=== PATIENT | male | born 1935 | race Caucasian/White ===

== ENCOUNTER 2019-07-03 12:17 | Inpatient (IN) ==
[2019-07-03] MEDS ORDERED: APRESOLINE PO ONE (13:52)
--- NOTE | 2019-07-03 14:10 | Diag Imaging Result Doc PS360 ---
EXAM: CHEST-PORTABLE 07/03/2019 HISTORY: syncope TECHNIQUE: Erect AP portable at 1359 COMMENT: The inspiration is suboptimal. Considering the degree of inspiration there has been no significant change since 11/15/2018. IMPRESSION: Poor inspiration. No acute disease. Electronically signed by Ed Miles 07/03/2019 2:08 PM
[2019-07-03 14:13] LABS: BASO# 0.02 X1000 (0.0-0.2); BASO% 0.2 % (0.0-0.8); EOS# 0.06 X1000 (0.0-0.7); EOS% 0.5 % (0.0-10.0); HEMATOCRIT 40.5 % (42.0-52.0); HEMOGLOBIN 13.4 g/dL (14.0-18.0); IMM GRAN# 0.02 X1000 (0.0-0.04); IMM GRAN% 0.2 % (0.0-0.5); LYMPH# 1.04 X1000 (1.2-3.4); LYMPH% 9.4 % (20.5-51.1); MCH 29.9 PG (27-31); MCHC 33.1 g/dL (33-37); MCV 90.4 FL (81-99); MONO# 0.69 X1000 (0.11-0.59); MONO% 6.2 % (1.7-9.3); MPV 10.5 FL (7.4-10.4); NEUT# 9.28 X1000 (1.4-6.5); NEUT% 83.5 % (42.2-75.2); PLT 188 X1000 (130-400); RBC 4.48 XMIL (4.7-6.1); RDW 12.2 % (11.5-14.5); WBC 11.11 X1000 (4.8-10.8)
--- NOTE | 2019-07-03 14:24 | PROVIDER DOCUMENTATION ---
HPI-Syncope/Dizziness - General Chief Complaint: Syncope Stated Complaint: FALL Time Seen by Provider: 07/03/19 13:13 Source: patient, family () Allergies/Adverse Reactions: Patient Allergies Allergy/AdvReac Type Severity Reaction Status Date / Time No Known Allergies Allergy Verified 07/03/19 13:09 Home Medications: Home Medication List Medication Instructions Recorded Confirmed Last Taken Type Cholecalciferol (Vitamin D3) 5,000 unit PO DAILY 11/15/18 07/03/19 07/03/19 History [Vitamin D3] Cyanocobalamin/Cobamamide [Vitamin 1 ea SUBLINGUAL DAILY 11/15/18 07/03/19 07/03/19 History B-12 5,000 Mcg Tab Sl] Dutasteride [Avodart] 0.5 mg PO DAILY 11/15/18 07/03/19 07/02/19 History Irbesartan 300 mg PO DAILY 11/15/18 07/03/19 07/02/19 History PRAVAstatin [Pravachol] 80 mg PO QHS 11/15/18 07/03/19 07/02/19 History Tamsulosin [Flomax] 0.4 mg PO BID 11/15/18 07/03/19 07/03/19 History Zolpidem [Ambien] 5 mg PO QHS 11/15/18 07/03/19 07/02/19 History Aspirin 1 tab PO DAILY 07/03/19 07/03/19 07/02/19 History - History of Present Illness-Syncope/Dizzy Nature of Presenting Problem: 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 He states he was altered and only came around to see people who had come to help him. No eye witness account and length of syncopal episode or any seizure episodes could not be accounted for if any. Onset/Duration: reports: abrupt, 4-6 hours ago Timing: reports: resolved prior to arrival Position/Activity at time of episode: reports: sitting Symptoms prior to episode: reports: none Context: reports: lost consciousness Loss of Consciousness: prolonged (minutes) Location of injury. (If syncope resulted in an injury.): reports: none Current Symptoms: reports: none/feels normal Recently Seen Here or By Another Healthcare Provider: No Review of Systems - Adult - REVIEW OF SYSTEMS - ADULT Constitutional: reports: no symptoms reported Eyes: reports: no symptoms reported Ears, Nose, Mouth & Throat: reports: no symptoms reported Cardiovascular: reports: no symptoms reported Respiratory: reports: no symptoms reported Gastrointestinal: reports: no symptoms reported Genitourinary: reports: no symptoms reported Musculoskeletal: reports: no symptoms reported Integumentary: reports: no symptoms reported Neurological: reports: see HPI Psychiatric: reports: no symptoms reported Endocrine: reports: no symptoms reported Hematologic/Lymphatic: reports: no symptoms reported Allergic/Immunologic: reports: no symptoms reported Past History - Adult - PAST MEDICAL HISTORY-ADULT Review of Records: reports: Nursing Assessment Review, Medications Reviewed, Social history reviewed & non-contributory. Cardiovascular: reports: HTN Respiratory: reports: denies history Gastrointestinal: reports: denies history Genitourinary: reports: other (BPH) Neurological: reports: CVA Endocrine/Immune: reports: denies history - FAMILY HISTORY Family History: reviewed, not pertinent - SOCIAL HISTORY Smoking: denies Substance Use: none/never Alcohol Use Frequency: never Living Situation: family Physical Exam-General - PHYSICAL EXAM-ADULT Initial Vital Signs Reviewed: Yes - CONSTITUTIONAL General Appearance: appears well, alert, no apparent distress - EYES Eyes: PERRL/EOMI, pink conjunctivae - HEAD, EARS, NOSE, MOUTH & THROAT HENMT: normocephalic/atraumatic (except for a linear abrasion near the left ear) - NECK Neck: non-tender, full range of motion, supple - RESPIRATORY Respiratory: chest non-tender, lungs clear, normal breath sounds - CARDIOVASCULAR Cardiovascular: normal peripheral pulses, regular rate, rhythm - GASTROINTESTINAL (ABDOMEN) Abdominal Exam: normal bowel sounds, non tender, soft - MUSCULOSKELETAL Back Exam: normal inspection Extremity: normal range of motion, non-tender, normal gait (for age) - SKIN Integumentary: normal color (a linear abrasion noted near the left ear. 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 - PSYCHIATRIC Psych/Mental Status: oriented x 3 Progress - PLAN OF CARE/RESULTS Progress/Plan/Lab Results: Vital Signs - 8 hr 07/03/19 13:01 07/03/19 13:02 07/03/19 13:15 Pulse Rate 62 60 60 Pulse Rate [Sitting] Pulse Rate [Standing] Pulse Rate [Supine] Respiratory Rate 20 17 15 Blood Pressure 172/75 Blood Pressure [Sitting] Blood Pressure [Standing] Blood Pressure [Supine] O2 Sat by Pulse Oximetry 96 96 96 07/03/19 13:41 07/03/19 14:00 07/03/19 14:01 Pulse Rate 65 64 63 Pulse Rate [Sitting] Pulse Rate [Standing] Pulse Rate [Supine] Respiratory Rate 17 13 25 H Blood Pressure 188/89 180/80 Blood Pressure [Sitting] Blood Pressure [Standing] Blood Pressure [Supine] O2 Sat by Pulse Oximetry 95 95 07/03/19 14:15 07/03/19 14:30 07/03/19 14:31 Pulse Rate 64 64 65 Pulse Rate [Sitting] Pulse Rate [Standing] Pulse Rate [Supine] Respiratory Rate 16 19 14 Blood Pressure 179/85 Blood Pressure [Sitting] Blood Pressure [Standing] Blood Pressure [Supine] O2 Sat by Pulse Oximetry 97 95 07/03/19 14:56 07/03/19 15:00 07/03/19 15:15 Pulse Rate 65 62 64 Pulse Rate [Sitting] Pulse Rate [Standing] Pulse Rate [Supine] Respiratory Rate 21 20 21 Blood Pressure 186/86 Blood Pressure [Sitting] Blood Pressure [Standing] Blood Pressure [Supine] O2 Sat by Pulse Oximetry 97 95 96 07/03/19 15:24 07/03/19 15:25 07/03/19 15:27 Pulse Rate 62 60 66 Pulse Rate [Sitting] Pulse Rate [Standing] Pulse Rate [Supine] Respiratory Rate 16 15 Blood Pressure 173/80 173/81 171/87 Blood Pressure [Sitting] Blood Pressure [Standing] Blood Pressure [Supine] O2 Sat by Pulse Oximetry 96 95 96 07/03/19 15:28 07/03/19 15:30 07/03/19 15:31 Pulse Rate 72 61 Pulse Rate [Sitting] 67 Pulse Rate [Standing] 74 Pulse Rate [Supine] 63 Respiratory Rate 19 20 Blood Pressure 165/80 183/85 Blood Pressure [Sitting] 171/82 Blood Pressure [Standing] 165/80 Blood Pressure [Supine] 173/81 O2 Sat by Pulse Oximetry 94 L 94 L 07/03/19 15:45 07/03/19 16:00 07/03/19 16:01 Pulse Rate 73 60 61 Pulse Rate [Sitting] Pulse Rate [Standing] Pulse Rate [Supine] Respiratory Rate 18 16 13 Blood Pressure 178/82 Blood Pressure [Sitting] Blood Pressure [Standing] Blood Pressure [Supine] O2 Sat by Pulse Oximetry 96 95 07/03/19 16:02 07/03/19 16:14 07/03/19 16:15 Pulse Rate 59 L 60 63 Pulse Rate [Sitting] Pulse Rate [Standing] Pulse Rate [Supine] Respiratory Rate 16 15 18 Blood Pressure 187/79 Blood Pressure [Sitting] Blood Pressure [Standing] Blood Pressure [Supine] O2 Sat by Pulse Oximetry 95 95 96 07/03/19 16:18 07/03/19 17:00 07/03/19 17:32 Pulse Rate 62 71 77 Pulse Rate [Sitting] Pulse Rate [Standing] Pulse Rate [Supine] Respiratory Rate 16 19 23 Blood Pressure 173/79 160/71 Blood Pressure [Sitting] Blood Pressure [Standing] Blood Pressure [Supine] O2 Sat by Pulse Oximetry 94 L 96 95 07/03/19 18:34 07/03/19 18:45 07/03/19 19:00 Pulse Rate 81 75 75 Pulse Rate [Sitting] Pulse Rate [Standing] Pulse Rate [Supine] Respiratory Rate 25 H 16 28 H Blood Pressure 148/84 Blood Pressure [Sitting] Blood Pressure [Standing] Blood Pressure [Supine] O2 Sat by Pulse Oximetry 07/03/19 19:01 Pulse Rate 76 Pulse Rate [Sitting] Pulse Rate [Standing] Pulse Rate [Supine] Respiratory Rate 16 Blood Pressure 132/66 Blood Pressure [Sitting] Blood Pressure [Standing] Blood Pressure [Supine] O2 Sat by Pulse Oximetry Laboratory Results - last 24 hr 07/03/19 07/03/19 07/03/19 13:42 13:56 13:56 WBC 11.11 H RBC 4.48 L Hgb 13.4 L Hct 40.5 L MCV 90.4 MCH 29.9 MCHC 33.1 RDW Std Deviation 12.2 Plt Count 188 MPV 10.5 H Immature Gran % (Auto) 0.2 Neut % (Auto) 83.5 H Lymph % (Auto) 9.4 L [place] % (Auto) 6.2 Eos % (Auto) 0.5 Baso % (Auto) 0.2 Immature Gran # (Auto) 0.02 Neut # (Auto) 9.28 H Lymph # (Auto) 1.04 L [place] # (Auto) 0.69 H Eos # (Auto) 0.06 Baso # (Auto) 0.02 PT INR PTT (Actin FS) Sodium 139 Potassium 4.8 Chloride 101 Carbon Dioxide 24 L Anion Gap 14 BUN 14 Creatinine 1.1 Estimated GFR/1.73 m2 > 60 BUN/Creatinine Ratio 13 Glucose 94 POC Glucose 74 Calculated Osmolality 278 Calcium 9.3 Total Bilirubin 0.41 AST 20 ALT 11 Alkaline Phosphatase 79 Troponin T Total Protein 6.5 Albumin 4.2 Globulin 2.3 Albumin/Globulin Ratio 1.8 Urine Source Urine Color Urine Turbidity Urine pH Ur Specific [place] Urine Protein Ur Glucose (Stick) Ur Ketones (Stick) Urine Blood Urine Nitrite Urine Bilirubin Urobilinogen Dipstick Urine Leukocytes Urine WBC (Auto) Urine RBC (Auto) U Epithel Cells (Auto) Urine Bacteria (Auto) Urine Opiates Screen Ur Oxycodone Screen Ur Methadone, Qual Ur Barbiturates Screen Ur Phencyclidine Scrn Ur Amphetamines Screen U Benzodiazepines Scrn Urine Cocaine Screen U Cannabinoids Screen 07/03/19 07/03/19 07/03/19 13:56 13:56 14:56 WBC RBC Hgb Hct MCV MCH MCHC RDW Std Deviation Plt Count MPV Immature Gran % (Auto) Neut % (Auto) Lymph % (Auto) [place] % (Auto) Eos % (Auto) Baso % (Auto) Immature Gran # (Auto) Neut # (Auto) Lymph # (Auto) [place] # (Auto) Eos # (Auto) Baso # (Auto) PT 13.1 INR 0.98 PTT (Actin FS) 28.9 Sodium Potassium Chloride Carbon Dioxide Anion Gap BUN Creatinine Estimated GFR/1.73 m2 BUN/Creatinine Ratio Glucose POC Glucose Calculated Osmolality Calcium Total Bilirubin AST ALT Alkaline Phosphatase Troponin T < 0.010 Total Protein Albumin Globulin Albumin/Globulin Ratio Urine Source CLEAN CATCH Urine Color YELLOW Urine Turbidity CLEAR Urine pH 6.5 Ur Specific [place] 1.013 Urine Protein NEGATIVE Ur Glucose (Stick) NEGATIVE Ur Ketones (Stick) NEGATIVE Urine Blood NEGATIVE Urine Nitrite NEGATIVE Urine Bilirubin NEGATIVE Urobilinogen Dipstick NORMAL Urine Leukocytes NEGATIVE Urine WBC (Auto) <10 Urine RBC (Auto) <10 U Epithel Cells (Auto) <10 Urine Bacteria (Auto) NEGATIVE Urine Opiates Screen Ur Oxycodone Screen Ur Methadone, Qual Ur Barbiturates Screen Ur Phencyclidine Scrn Ur Amphetamines Screen U Benzodiazepines Scrn Urine Cocaine Screen U Cannabinoids Screen 07/03/19 07/03/19 14:56 15:48 WBC RBC Hgb Hct MCV MCH MCHC RDW Std Deviation Plt Count MPV Immature Gran % (Auto) Neut % (Auto) Lymph % (Auto) [place] % (Auto) Eos % (Auto) Baso % (Auto) Immature Gran # (Auto) Neut # (Auto) Lymph # (Auto) [place] # (Auto) Eos # (Auto) Baso # (Auto) PT INR PTT (Actin FS) Sodium Potassium Chloride Carbon Dioxide Anion Gap BUN Creatinine Estimated GFR/1.73 m2 BUN/Creatinine Ratio Glucose POC Glucose 92 Calculated Osmolality Calcium Total Bilirubin AST ALT Alkaline Phosphatase Troponin T Total Protein Albumin Globulin Albumin/Globulin Ratio Urine Source Urine Color Urine Turbidity Urine pH Ur Specific [place] Urine Protein Ur Glucose (Stick) Ur Ketones (Stick) Urine Blood Urine Nitrite Urine Bilirubin Urobilinogen Dipstick Urine Leukocytes Urine WBC (Auto) Urine RBC (Auto) U Epithel Cells (Auto) Urine Bacteria (Auto) Urine Opiates Screen NONE DETECTED Ur Oxycodone Screen NONE DETECTED Ur Methadone, Qual NONE DETECTED Ur Barbiturates Screen NONE DETECTED Ur Phencyclidine Scrn NONE DETECTED Ur Amphetamines Screen NONE DETECTED U Benzodiazepines Scrn NONE DETECTED Urine Cocaine Screen NONE DETECTED U Cannabinoids Screen NONE DETECTED Orders Category Date Time Status Cardiac Monitoring DIRECTED Care 07/03/19 13:49 Active ED: Orthostatic Vital Signs (E DIRECTED Care 07/03/19 15:12 Active Finger Stick Blood Sugar (ED) DIRECTED Care 07/03/19 13:49 Active Misc. NRSG Communication Order DIRECTED Care 07/03/19 13:49 Active Saline Loc NOW Care 07/03/19 13:49 Active VS [Vital Signs Order] Q 4-HR ASSESS Care 07/03/19 19:34 Active Regular Diet Diet 07/03/19 16:54 Active CHEST-PORTABLE [RAD] Stat Exams 07/03/19 13:[address] HEAD W/O CONTRAST [CT] Stat Exams 07/03/19 13:31 Completed CBC WITH ELECTRONIC DIFF [HEME] Stat Lab 07/03/19 13:56 Completed COMPREHENSIVE METABOLIC PANEL [CHEM] Stat Lab 07/03/19 13:56 Completed PROTIME WITH INR [COAG] Stat Lab 07/03/19 13:56 Completed PTT [COAG] Stat Lab 07/03/19 13:56 Completed TROPONIN T Stat Lab 07/03/19 13:56 Completed URINALYSIS W/POSS RFLX CULT [URINALYSIS] Stat Lab 07/03/19 14:56 Completed URINE DRUG SCREEN Stat Lab 07/03/19 14:56 Completed Diph,Pertuss(Acell),Tet Vac/Pf [Boostrix Vaccine] Med 07/03/19 17:15 Discontinued 0.5 ml IM .ONCE ONE Hydralazine [Apresoline] Med 07/03/19 15:58 Discontinued 10 mg IV NOW ONE Hydralazine [Apresoline] Med 07/03/19 13:52 Discontinued 10 mg PO NOW ONE EKG [EKG] Stat Ther 07/03/19 13:49 Draft Transfer/Admit Order [TRANSFER] Routine Transfer 07/03/19 19:28 Ordered Result Diagrams: 07/03/19 13:56 07/03/19 13:56 - REASSESSMENT Reassessment #1 Time Reassessed: 16:01 Status: other (Pt is stable, bp did not go down much with hydralazine 10mg po. Will give hydralazine 10mg IV and pt will be admitted for syncope work up. 16:03: Paged Hospitalist, awaiting response.) Reassessment #2 Time Reassessed: 17:13 Status: unchanged (Patient stable. Paged hospitalist software solutions architect 3x. Awaiting response) - XRAY 1 XRAY Study: Chest ( EXAM: CHEST-PORTABLE 07/03/2019 HISTORY: syncope TECHNIQUE: Erect AP portable at 1359 COMMENT: The inspiration is suboptimal. Considering the degree of inspiration there has been no significant change since 11/15/2018. IMPRESSION: Poor inspiration. No acute disease. Electronically signed by Ed Miles 07/03/2019 2:08 PM) - CT/MRI 1 CT Study: Head (Signed EXAM: CT HEAD W/O CONTRAST 07/03/2019 HISTORY: head injury TECHNIQUE: This exam was performed using automated exposure control, adjustment of mA or kV according to patient size, and/or use of iterative reconstruction technique. COMMENT: There are no previous studies available for comparison. There is encephalomalacia present in the posterior left parietal lobe and the frontoparietal cortex on the left medially. There is a CSF density collection present in the left posterior fossa which is asymmetrical in appearance and may be represent an arachnoid cyst. There is no evidence of bleed or abnormal extra-axial fluid collection otherwise. The visualized paranasal sinuses are clear and the calvarium is intact. IMPRESSION: Chronic ischemic changes in the left hemisphere. 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 Eventually spke with Dr Pa, accepts admission and will see patient later.) Departure - Departure Date of Disposition Decision: 07/03/19 Time of Disposition Decision: 18:05 DIAGNOSIS: Syncope Qualifiers: Syncope type: unspecified Qualified Code(s): R55 - Syncope and collapse HTN (hypertension) Qualifiers: Hypertension type: unspecified Qualified Code(s): I10 - Essential (primary) hypertension Disposition: ADMITTED INPATIENT 09 Certified Medical Emergency: Emergent Condition: Fair - Critical Care Note This patient required my direct & personal management of CC.: No Attestation - Physician/ VERN Attestation Patient care was provided by Advanced Practice Provider:: No The physician spent face to face time with patient:: Yes Advanced Practice Provider documentation review:: Supervising physician onsite and consulted in the evaluation and care of this patient. The physician did have a face to face encounter with the patient.
[2019-07-03 14:45] LABS: AGAP 14; ALB/GLOB RATIO 1.8; ALBUMIN 4.2 g/dL (3.5-5.0); ALKALINE PHOSPHATASE 79 U/L (32-122); BUN 14 mg/dL (8-22); CALCIUM 9.3 mg/dL (8.8-10.2); CHLORIDE 101 mmol/L (98-107); COSMO 278; CREATININE 1.1 mg/dL (0.7-1.2); ESTIMATED GFR > 60; GLUCOSE 94 mg/dL (70-104); GOT 20 U/L (10-34); GPT 11 U/L (10-44); INR 0.98; POTASSIUM 4.8 mmol/L (3.5-5.1); PROTIME 13.1 Seconds (11.0-16.0); SODIUM 139 mmol/L (136-145); TCO2 24 mmol/L (25-35); TOTAL BILIRUBIN 0.41 mg/dL (0.20-1.00); TOTAL PROTEIN 6.5 g/dL (6.3-8.3)
[2019-07-03 14:46] LABS: PTT 28.9 Seconds (22.3-41.8)
--- NOTE | 2019-07-03 14:49 | Diag Imaging Result Doc PS360 ---
EXAM: CT HEAD W/O CONTRAST 07/03/2019 HISTORY: head injury TECHNIQUE: This exam was performed using automated exposure control, adjustment of mA or kV according to patient size, and/or use of iterative reconstruction technique. COMMENT: There are no previous studies available for comparison. There is encephalomalacia present in the posterior left parietal lobe and the frontoparietal cortex on the left medially. There is a CSF density collection present in the left posterior fossa which is asymmetrical in appearance and may be represent an arachnoid cyst. There is no evidence of bleed or abnormal extra-axial fluid collection otherwise. The visualized paranasal sinuses are clear and the calvarium is intact. IMPRESSION: Chronic ischemic changes in the left hemisphere. Arachnoid cyst in the left posterior fossa. Electronically signed by Ed Miles 07/03/2019 2:47 PM
--- NOTE | 2019-07-03 14:50 | EKG Report ---
Test Performed on : 07/03/2019 12:47:49 PM Test Reason : Stroke like symptoms Blood Pressure : / mmHG Vent. Rate : 058 BPM Atrial Rate : 058 BPM P-R Int : 178 ms QRS Dur : 126 ms QT Int : 416 ms P-R-T Axes : 044 -14 018 degrees QTc Int : 408 ms Sinus bradycardia. Right bundle branch block Abnormal ECG When compared with ECG of 15-NOV-2018 12:45, QRS duration has decreased Unconfirmed Result
[2019-07-03 15:14] LABS: URINE SOURCE CLEAN CATCH
[2019-07-03 15:22] LABS: BILIRUBIN URINE NEGATIVE (NEGATIVE); BLOOD URINE NEGATIVE (NEGATIVE); COLOR YELLOW; GLUCOSE URINE NEGATIVE (NEGATIVE); KETONE URINE NEGATIVE (NEGATIVE); LEUKOCYTES URINE NEGATIVE (NEGATIVE); NITRITE URINE NEGATIVE (NEGATIVE); PH URINE 6.5; PROTEIN URINE NEGATIVE (NEGATIVE); SP GRAVITY URINE 1.013; TURBIDITY URINE CLEAR (CLEAR); UROBILINOGEN URINE NORMAL (NORMAL)
[2019-07-03 15:25] LABS: UR EPITHELIAL CELLS <10 /HPF (<10); URINE BACTERIA NEGATIVE /HPF; URINE RBC <10 /HPF (<10); URINE WBC <10 /HPF (<10)
[2019-07-03 15:34] LABS: UR AMPHETAMINES QUAL NONE DETECTED (NONE DETECT); UR BARBITUATES QUAL NONE DETECTED (NONE DETECT); UR BENZODIAZEPIN QUAL NONE DETECTED (NONE DETECT); UR CANNABINOIDS QUAL NONE DETECTED (NONE DETECT); UR COCAINE QUAL NONE DETECTED (NONE DETECT); UR METHADONE QUAL NONE DETECTED (NONE DETECT); UR OPIATES QUAL NONE DETECTED (NONE DETECT); UR OXYCODONE QUAL NONE DETECTED (NONE DETECT); UR PCP QUAL NONE DETECTED (NONE DETECT)
[2019-07-03] MEDS ORDERED: APRESOLINE IV ONE (15:58)
[2019-07-03] MEDS ORDERED: BOOSTRIX VACCINE IM ONE (17:15)
--- NOTE | 2019-07-03 21:09 | HISTORY AND PHYSICAL ---
SUBJECTIVE: The patient passed out. HISTORY OF PRESENT ILLNESS: The patient is an 84-year-old white male who was working out at the gym and had a syncopal episode. He said he had just worked out and was adjusting some arm supports on a machine and he hit the floor. He said he did not feel dizzy. Does not know what happened. He says he was only out for a few seconds. There were other people gym who helped him up and then a special forces officer who was actually working out came to check on him as well. He does not remember any chest pain, heart palpitations, headaches and he said he felt fairly normal when he woke up. Apparently, there was no reportable shaking behavior. Past history is positive for a stroke in October of this year, hypertension, hyperlipidemia and BPH. He had a workup with an echocardiogram done transesophageal there was essentially normal in November. He had a carotid flow studies in October which showed minimal disease. MRI scan showed a left occipital area of ischemic stroke. He had a myocardial perfusion scan in December of this year that was essentially normal. PAST MEDICAL HISTORY: ALLERGIES: He has no known allergies. PAST SURGICAL HISTORY: He has had no previous surgeries. SOCIAL HISTORY: Does not use alcohol or tobacco to any extent. He does have 2 children. He is retired. One daughter of lung cancer. She was a smoker. REVIEW OF SYSTEMS: Neurological: Denies headaches, seizures, visual problems. Does have chronic hearing problems and wears hearing aids. Pulmonary: Denies cough, wheezing, dyspnea. Cardiovascular: Denies chest pain, heart palpitations, PND, orthopnea. GI: Denies hematochezia, hematemesis, melena, constipation, diarrhea. No nausea or vomiting. : Denies any difficulty with urination as long as he takes Avodart and his Flomax. Endocrine: He has had no diabetes, thyroid problems or pituitary problems. PHYSICAL EXAMINATION: VITAL SIGNS: When he came in his blood pressure was in the 150s to 170s initially went up to 188. General his blood pressures have been good recently. He was given initially hydralazine 10 mg p.o. with no affect and then was given 10 mg IV and did get a good response to his blood pressure with that. HEENT: He is normocephalic. PERRLA clear. Fundi benign. TMs within normal limits. He does wear hearing aids bilaterally. NECK: Supple without thyromegaly, lymphadenopathy, or carotid bruits. LUNGS: Are clear to auscultation and percussion without rhonchi, rales, or wheezes. HEART: Regular rate and rhythm without murmurs, gallops, friction rubs. ABDOMEN: Soft. Active bowel sounds no organomegaly or tenderness. NEUROLOGICAL EXAM: Cranial nerves 2-12 intact grossly. Sensory and motor intact. Reflexes 1+ in all. SKIN: He has no rashes. LYMPH NODES: Lymph nodes are nonpalpable in the cervical and supraclavicular areas. RECTAL: Deferred. GENITOURINARY: External genitalia exam is deferred. COURSE IN THE EMERGENCY ROOM: The patient does state that he may have skipped supper last night. When he first came to the emergency room his blood sugar was in the 70s. He was given something to eat. He did not feel particularly nauseated or did not feel tremulous like low blood sugars spell, but that is a consideration. ASSESSMENT: 1. Syncope. 2. Hypertension. 3. Benign prostatic hyperplasia. 4. History of cerebrovascular accident. PLAN: We will admit, do workup for syncope. We will consult Neurology and Cardiology. We will do kimberley-profiles though he has denied any chest pain. He has already had recent carotid studies and echo. I am not sure we need to repeat those, but we will find out what is recommended by Cardiology. cc: Cornelius Pa Jr, MD
[2019-07-03] MEDS: PRAVACHOL PO SCH (22:10)
[2019-07-03] MEDS: AMBIEN PO SCH (22:11)
[2019-07-03] MEDS: FLOMAX PO SCH (22:11)
[2019-07-04 04:13] LABS: BASO# 0.02 X1000 (0.0-0.2); BASO% 0.2 % (0.0-0.8); EOS# 0.22 X1000 (0.0-0.7); EOS% 2.4 % (0.0-10.0); HEMATOCRIT 38.4 % (42.0-52.0); HEMOGLOBIN 12.8 g/dL (14.0-18.0); LYMPH# 1.27 X1000 (1.2-3.4); LYMPH% 13.9 % (20.5-51.1); MCHC 33.3 g/dL (33-37); MCV 90.1 FL (81-99); MONO# 0.81 X1000 (0.11-0.59); MONO% 8.9 % (1.7-9.3); MPV 10.2 FL (7.4-10.4); NEUT# 6.83 X1000 (1.4-6.5); NEUT% 74.6 % (42.2-75.2); PLT 197 X1000 (130-400); RBC 4.26 XMIL (4.7-6.1); WBC 9.15 X1000 (4.8-10.8)
[2019-07-04 04:40] LABS: AGAP 12; BUN 15 mg/dL (8-22); CALCIUM 9.1 mg/dL (8.8-10.2); CHLORIDE 104 mmol/L (98-107); COSMO 280; CREATININE 0.9 mg/dL (0.7-1.2); ESTIMATED GFR > 60; GLUCOSE 97 mg/dL (70-104); POTASSIUM 4.1 mmol/L (3.5-5.1); SODIUM 140 mmol/L (136-145); TCO2 24 mmol/L (25-35)
--- NOTE | 2019-07-04 10:20 | EKG Report ---
Test Performed on : 07/04/2019 10:12:19 AM Test Reason : syncope Blood Pressure : / mmHG Vent. Rate : 059 BPM Atrial Rate : 059 BPM P-R Int : 196 ms QRS Dur : 136 ms QT Int : 440 ms P-R-T Axes : 053 -19 014 degrees QTc Int : 435 ms Sinus bradycardia. Right bundle branch block Abnormal ECG When compared with ECG of 03-JUL-2019 12:47, (Unconfirmed) No significant change was found Confirmed by Herb SANDOVAL, P.J.M ([id number]) on 07/05/2019 7:56:18 PM
[2019-07-04] MEDS: VITAMIN D PO SCH (10:24)
[2019-07-04] MEDS: AVAPRO PO SCH (10:24)
[2019-07-04] MEDS: ASPIRIN PO SCH (10:24)
[2019-07-04] MEDS: FLOMAX PO SCH ×2 (10:24→21:12)
--- NOTE | 2019-07-04 11:27 | PROGRESS NOTE ---
DATE: 07/04/2019 SUBJECTIVE: The patient says he feels fine. He has had no more syncopal episodes. OBJECTIVE: Vital signs: Blood pressure is 165/69, respirations 19, pulse 60, temperature 98.2 degrees Fahrenheit. HEENT: Normocephalic, EOMs intact. PERRLA. Throat clear. Lungs: Clear to auscultation and percussion without rhonchi, rales, or wheezes. Heart: Regular rate and rhythm without murmurs, gallops or friction rubs. Abdomen: Soft. Active bowel sounds. No organomegaly or tenderness. Neurologic: Intact grossly at this time. ASSESSMENT: 1. Syncope. 2. Hypertension. PLAN: Continue workup for syncope. Have consulted Neurology and Cardiology. The patient has had a stroke within the last 8 months and had a workup including cardiac workup at that time. cc: Cornelius Pa Jr, MD
[2019-07-04] MEDS: AVODART PO SCH (15:23)
--- NOTE | 2019-07-04 20:33 | CARDIOLOGY CONSULTATION ---
DATE: 07/04/2019 INDICATION FOR CONSULTATION: Syncope. HISTORY: Mr. Webb is a pleasant 84-year-old gentleman who presented to the emergency room department yesterday at about 1 p.m. or so after suffering a syncopal episode at the gym where he normally goes to exercise 3 days a week. The patient said that early in the morning of that day, which is yesterday, he had to keyanna his little dog, that had run out of the house, around the neighborhood. That put some stress on him. He took his usual morning medications and went to the gym after eating breakfast with his . At the gym he did his usual routine and when he was about to start doing arm exercises, lifting weights, that is when he lost consciousness briefly. He did not have any obvious jerking motion or any activity to suspect a full- blown seizure. He came back to his senses rather quickly. The people around him called the emergency medical services. Upon waking up, he did not notice any chest discomfort or palpitations or dyspnea or nausea. He felt no dizziness prior or after the event or the incident. The patient says that he has never had any syncopal episode. Upon arrival to the ER, his vital signs were found to be stable. His blood pressure was 152/75 and his pulse rate in the initial encounter was 67. His EKG at the time of initial presentation showed no abnormalities of any significance. His EKG shows sinus rhythm with a right bundle branch block, which is not a new finding. 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 The patient, this morning, is feeling just fine. I am seeing him on July 04. PAST HISTORY: Positive for hypertension, hyperlipidemia. He suffered a stroke in October of 2018. He was evaluated by Dr. Jacinto who performed LIZZIE and then a stress test. Nothing really panned out. The reason for stroke remains unclear. SURGICAL HISTORY: Had tonsillectomy, skin cancer removal. SOCIAL HISTORY: He has been to his for 65 years. They have children and a granddaughter who is in the room with them. The patient has been retired for a while. He lives at home. Not a smoker or drinker. FAMILY HISTORY: Noncontributory. ALLERGIES: Negative. HOME MEDICATIONS: Are as follows: He is taking aspirin 1 tablet daily, vitamin D3 5000 daily, Avodart 0.5 mg daily, irbesartan 300 daily, pravastatin 80 mg at bedtime, Flomax 0.4 mg twice a day, zolpidem 5 mg at bedtime. REVIEW OF SYSTEMS: He is doing fine. He does not have any limitation to perform physical activities. He does not have any neurological complaints on a regular basis. No psychiatric illness. No GI complaints. No pulmonary issues. No musculoskeletal issues. No skin disorder. No hematological or oncological issues. Multiple systems reviewed and negative. PHYSICAL EXAMINATION: Vital signs: Blood pressure 165/69, temperature 98.2 degrees, respirations 18, pulse 60 beats per minute. He is awake, alert, oriented, in no distress. HEENT: Unremarkable. Chest: Clear to auscultation and percussion. Heart: Sounds regular and rhythmic. No gallop or murmur. Abdomen: Soft, nontender. No masses. No hepatomegaly. Extremities: Show good pulses. No peripheral edema. Neuro: Nonfocal. Moves 4 extremities. IMPRESSION: 1. Patient had syncopal episode in the morning. This was while he was doing his exercise routine on July 03. No prodromes and no abnormal motion noted to consider active seizure. 2. History of hypertension. 3. History of hyperlipidemia. 4. Previous stroke in October 2018 involving, I believe, the occipital area of the brain per MRI done on 10/21/2018. Dr. Huntley reported an acute or early subacute infarct at the anterior lateral left occipital lobe measuring approximately 4.7 x 2.3 cm. A probably late subacute infarct at superior left frontal lobe measuring 3 x 2 cm. There has been no documented record of this. RECOMMENDATION: At this time, I really do not have any further recommendations. The patient probably has a case of orthostatic syncope which may have been precipitated by the stress that he went through in the morning chasing his dog plus the tamsulosin that he takes in the morning. I have recommended to him to skip the morning doses of tamsulosin and only take it at night. Keep himself well hydrated. We will decide if we need to provide him with a monitor, although his event does not sound arrhythmic. We have already done a followup echocardiogram limited, which shows no evidence of any change in his left ventricular systolic function or left-sided valvular structures. I think his cardiac status is stable. We will discuss with Dr. Pa. cc: MD Cornelius Byrne Jr, MD MTDD
[2019-07-04] MEDS: PRAVACHOL PO SCH (21:12)
[2019-07-04] MEDS: AMBIEN PO SCH (21:12)
--- NOTE | 2019-07-04 22:02 | EKG Report ---
Test Performed on : 07/04/2019 9:37:41 PM Test Reason : syncope Blood Pressure : / mmHG Vent. Rate : 054 BPM Atrial Rate : 054 BPM P-R Int : 192 ms QRS Dur : 124 ms QT Int : 426 ms P-R-T Axes : 056 -22 017 degrees QTc Int : 403 ms Sinus bradycardia. Right bundle branch block Abnormal ECG When compared with ECG of 04-JUL-2019 10:12, (Unconfirmed) No significant change was found Confirmed by Herb SANDOVAL, P.J.M ([id number]) on 07/05/2019 7:57:40 PM
--- NOTE | 2019-07-04 22:35 | ECHO REPORT ---
ORDER DATE: 07/04/2019 INDICATION: Syncope. FINDINGS: 1. Right atrium appears normal in size at 3.9 cm. 2. Trace tricuspid regurgitation. RV systolic pressure of 50, suggesting pulmonary hypertension. 3. Normal RV size and systolic function. 4. No significant pulmonic insufficiency. 5. Normal left atrial size with a dimension of 3.8 cm. 6. No mitral valve prolapse. Mild mitral regurgitation. 7. Normal LV size, end-diastolic dimension of 5.2 cm. Normal wall thicknesses with a posterior and interventricular septal wall thickness of 1.1 cm each. Normal LV systolic function. Estimated EF of 65% with normal wall motion. 8. Aortic valve opens well. Trace insufficiency. No stenosis. 9. Aorta appears normal in visualized segments. 10. No pericardial effusion seen. cc: MD Sabrina Manzanares PA Roger H. Moss Jr, MD
--- NOTE | 2019-07-05 04:47 | CONSULTATION ---
DATE OF CONSULTATION: 07/04/2019 REASON FOR CONSULTATION: Syncope. HISTORY OF PRESENT ILLNESS: This is an 84-year-old right-handed male with history of stroke in October of this year, hypertension, and hyperlipidemia. He was admitted yesterday following a syncopal episode. History is from the patient. He was working out at the gym, stopped, and was standing talking with a friend for about 10 minutes. He felt well. He sat down on a piece of exercise equipment and adjusted the weights which were at eye level. The next thing he knew he was lying on the floor to the left of the machine. He had fallen down and hit the left side of his head and lost consciousness. Apparently, he was only unconscious for a few seconds before arousing with people around him. He sustained a laceration to the left side of his head. He was not particularly confused or lethargic afterwards. He had no warning prior to the event. No headache. No chest pain, shortness of breath, visual disturbance, lightheadedness or flushing. He denies focal weakness. He has not had a similar event. In October of 2018, he reports having sudden onset language difficulty predominantly with getting the words out correctly. He had no other neurologic symptoms. An MRI showed an acute or early subacute infarct at the anterior left occipital lobe as well as a probable late subacute infarct at the superior left frontal lobe. He had a full workup at that time which included a transesophageal echocardiogram that did not show evidence of thrombus. Carotid Doppler's showing 0 to 39 percent bilaterally. He has not been known to have atrial fibrillation. PAST MEDICAL HISTORY: Stroke in October of 2018 as per above, hypertension, and hyperlipidemia. FAMILY HISTORY: Reviewed and noncontributory. SOCIAL HISTORY: No alcohol or tobacco. No illicit's. He is retired. ALLERGIES: No known drug allergies listed. MEDICATIONS: At home include low-dose aspirin daily. Others reviewed in the chart. REVIEW OF SYSTEMS: Balance of 12 conducted, and is otherwise negative except that detailed in the HPI. PHYSICAL EXAMINATION: Vital Signs: Afebrile. Blood pressure 152/75 on admission. Pulse 50s to 60s. General: Mr. Webb is sitting up in bed, awake, alert, and fully oriented. For the most part, speech is fluent. There is some slight hesitation at times. When he talks more quickly, I noticed once or twice that he had some difficulty with his words. He is not significantly dysarthric. Follows simple and complex commands. Left and right digit distinction preserved. Pupils equal, round, and reactive. Gaze conjugate. Ocular movements are full. Face symmetric with equal activation. Facial sensation reported intact. Tongue is midline. Palate elevates symmetrically. Shoulder shrug is full. He can hear. No drift. Strength is preserved in the arms and legs as tested. No obvious deficit. He reports a symmetric sensation to pinprick in the limbs. There is also a length dependent loss to pinprick in the distal lower extremities bilaterally and symmetric. Reflexes are 2+ at the wrists, knees and ankles. No clonus. Plantar response is downgoing. [id number] and rapid alternating movements intact. DIAGNOSTICS: Head CT this admission showing chronic changes in the left hemisphere. Arachnoid cyst in the left posterior fossa. LABORATORY: Labs reviewed in the chart. Normal white count, BUN and creatinine, AST, ALT, sodium, and blood glucose. Urinalysis toxicology negative. ASSESSMENT AND PLAN: Syncopal episode without warning. Uncertain etiology. No focal findings on exam. This sounds less likely to be seizure related, but, I will order a routine EEG to evaluate for increased propensity. Agree with telemetry monitoring. You might consider an event monitor at discharge. We will also order an MRI given his history of multifocal stroke in October of this year. Thank you for the consultation. cc: MD Cornelius Matias Jr, MD MTDD
[2019-07-05 07:47] LABS: BASO# 0.03 X1000 (0.0-0.2); BASO% 0.4 % (0.0-0.8); EOS# 0.28 X1000 (0.0-0.7); EOS% 3.6 % (0.0-10.0); HEMATOCRIT 38.3 % (42.0-52.0); HEMOGLOBIN 12.6 g/dL (14.0-18.0); LYMPH# 1.02 X1000 (1.2-3.4); LYMPH% 13.1 % (20.5-51.1); MCH 29.9 PG (27-31); MCHC 32.9 g/dL (33-37); MONO# 0.72 X1000 (0.11-0.59); MONO% 9.3 % (1.7-9.3); MPV 10.5 FL (7.4-10.4); NEUT# 5.73 X1000 (1.4-6.5); NEUT% 73.6 % (42.2-75.2); PLT 181 X1000 (130-400); RBC 4.21 XMIL (4.7-6.1); RDW 12.1 % (11.5-14.5); WBC 7.78 X1000 (4.8-10.8)
[2019-07-05 08:04] LABS: AGAP 7; BUN 15 mg/dL (8-22); CALCIUM 9.4 mg/dL (8.8-10.2); CHLORIDE 103 mmol/L (98-107); COSMO 275; ESTIMATED GFR > 60; GLUCOSE 101 mg/dL (70-104); POTASSIUM 4.4 mmol/L (3.5-5.1); SODIUM 137 mmol/L (136-145); TCO2 27 mmol/L (25-35)
[2019-07-05] MEDS: AVAPRO PO SCH (08:37)
[2019-07-05] MEDS: VITAMIN D PO SCH (08:37)
[2019-07-05] MEDS: ASPIRIN PO SCH (08:37)
[2019-07-05] MEDS: AVODART PO SCH (08:38)
[2019-07-05] MEDS: FLOMAX PO SCH ×2 (08:38→21:07)
--- NOTE | 2019-07-05 11:31 | PROGRESS NOTE ---
DATE: 07/05/2019 SUBJECTIVE: The patient says he feels fine. He has had no more syncope. Workup so far has been negative, including troponins. Today, he is to have an MRI scan of his head, and then EEG. OBJECTIVE: Vital Signs: Blood pressure 164/74, respirations 16, pulse 54, temperature 98 degrees Fahrenheit. HEENT: Normocephalic. EOMs intact. PERRLA. Throat clear. Lungs: Clear to auscultation and percussion, without rhonchi, rales, or wheezes. Heart: Regular rate and rhythm, without murmurs, gallops, friction rubs. Abdomen: Soft. Active bowel sounds. No organomegaly or tenderness. Neurological: Intact grossly. ASSESSMENT: Syncope. PLAN: Continue workup. cc: Cornelius Pa Jr, MD
--- NOTE | 2019-07-05 13:08 | Diag Imaging Result Doc PS360 ---
MRI BRAIN W/O CONTRAST - 07/04/2019 INDICATION: syncope COMPARISON: Head CT 07/03/2019, brain MRI 10/21/2018 FINDINGS: There is an area of old encephalomalacia at the left occipital lobe. This demonstrate overlying cortical T1 hyperintensity indicating laminar cortical necrosis. There is no area of restricted diffusion. No intracranial mass or hemorrhage. The ventricles and sulci are normal in size and contour. There is mild periventricular white matter chronic microvascular disease. IMPRESSION: Old left parietal lobe infarction. No acute process. Electronically signed by Eliel Hammond 07/05/2019 1:06 PM
--- NOTE | 2019-07-05 20:54 | PROGRESS NOTE ---
DATE: 07/05/2019 SUBJECTIVE: Mr. Webb presented with episode of syncope. Dr. Merchant saw him for neurology evaluation yesterday. He has not had any further episodes. He feels well today. Brain MRI scan today, done without contrast, shows the old left hemisphere infarction, but nothing acute. There is no significant brainstem finding. EEG is scheduled. ASSESSMENT/PLAN: With negative MRI, stable course, and no evidence of primary central nervous system event, I do not think we have to do anything urgently. If EEG is negative, there will not be any further suggestion from Neurology standpoint. Thanks for asking us to see Mr. Webb. cc: MD Cornelius Conley III, Jr, MD
[2019-07-05] MEDS: AMBIEN PO SCH (21:07)
[2019-07-05] MEDS: PRAVACHOL PO SCH (21:07)
[2019-07-06 07:57] VITALS: BP 181/69
[2019-07-06 08:21] LABS: BASO# 0.03 X1000 (0.0-0.2); BASO% 0.4 % (0.0-0.8); EOS# 0.31 X1000 (0.0-0.7); EOS% 3.8 % (0.0-10.0); HEMATOCRIT 40.7 % (42.0-52.0); HEMOGLOBIN 13.2 g/dL (14.0-18.0); LYMPH# 1.26 X1000 (1.2-3.4); LYMPH% 15.6 % (20.5-51.1); MCH 29.6 PG (27-31); MCHC 32.4 g/dL (33-37); MCV 91.3 FL (81-99); MONO# 0.76 X1000 (0.11-0.59); MONO% 9.4 % (1.7-9.3); MPV 10.8 FL (7.4-10.4); NEUT# 5.72 X1000 (1.4-6.5); NEUT% 70.8 % (42.2-75.2); PLT 195 X1000 (130-400); RBC 4.46 XMIL (4.7-6.1); RDW 12.2 % (11.5-14.5); WBC 8.08 X1000 (4.8-10.8)
[2019-07-06 08:40] LABS: AGAP 11; BUN 17 mg/dL (8-22); CALCIUM 9.2 mg/dL (8.8-10.2); CHLORIDE 102 mmol/L (98-107); COSMO 279; CREATININE 1.1 mg/dL (0.7-1.2); ESTIMATED GFR > 60; GLUCOSE 94 mg/dL (70-104); POTASSIUM 4.3 mmol/L (3.5-5.1); SODIUM 139 mmol/L (136-145); TCO2 26 mmol/L (25-35)
[2019-07-06] MEDS: AVAPRO PO SCH (08:56)
[2019-07-06] MEDS: AVODART PO SCH (08:56)
[2019-07-06] MEDS: FLOMAX PO SCH (08:57)
[2019-07-06] MEDS: VITAMIN D PO SCH (08:57)
[2019-07-06] MEDS: ASPIRIN PO SCH (08:57)
--- NOTE | 2019-07-06 22:14 | EEG REPORT ---
DATE: 07/04/2019 EEG #: [id number] done on 07/05/2019. COMMENT: This is a digitally recorded EEG on an 84-year-old patient with recent syncopal episode, prior left hemisphere infarction. FINDINGS: During waking, medium amplitude 9.5 Hz posterior dominant rhythm is present bilaterally and reacts at times to eye opening. Background contains polymorphic and rhythmic theta frequencies over the frontal and central regions with no sustained asymmetry or focal slowing. Drowsing occurred briefly with symmetric features. Stage 2 sleep was not recorded. Hyperventilation was not done. Photic stimulation produced some symmetric entrainment. No definite epileptiform discharge was identified. INTERPRETATION: Normal EEG. CORRELATION: The absence of epileptiform discharges on a single EEG does not exclude a clinical diagnosis of seizures, but there is nothing on this record to suggest the presence of a seizure disorder. The EEG often returns to normal following cerebral infarction. cc: MD Stephanie Conley III, MD Roger H. Moss Jr, MD MTDD
--- NOTE | 2019-07-07 07:14 | DISCHARGE SUMMARY ---
ADMISSION DATE: 07/03/2019 DISCHARGE DATE: 07/06/2019 FINAL DIAGNOSIS: Syncope. SECONDARY DIAGNOSES: 1. Hypertension. 2. Previous cerebrovascular accident. 3. Benign prostatic hypertrophy. HISTORY OF PRESENT ILLNESS: The patient is an 84-year-old, who was working out in a gym, and had a syncopal episode. He does not remember much about it. He thinks he was only out for a couple of seconds. When he came in the hospital, he was hypertensive and was treated for his blood pressure. Since that time, his blood pressures have remained fairly stable. He has had no more syncopal episodes. Blood pressure is up a little bit 181/69 in midday, respirations 19, pulse 55, and temperature 97.3 degrees Fahrenheit. The EEG report is pending. MRI scan shows old CVA with nothing new. Cardiac workup has been negative. He has had no arrhythmias. Consultation was made with Cardiology and Neurology. The patient has had no more experiences of syncope or near syncope while in the hospital. His symptoms did not really go along with seizure disorder. He may have had a vasovagal effect, but his blood pressure was actually elevated when he came in the hospital. DISCHARGE EXAMINATION: HEENT: Normocephalic. EOMs intact. PERRLA. Throat clear. Lungs: Clear to auscultation and percussion without rhonchi, rales, or wheezes. Heart: Regular rate and rhythm without murmurs, gallops, friction rubs. Abdomen: Soft. Active bowel sounds. No organomegaly or tenderness. Neurologic: Exam intact grossly. PLAN: We will discharge home, and see back in the office within the next couple of weeks. We will call him with his EEG report when we get it. Even if it is abnormal, we would then have to decide whether he wanted to be on anticonvulsant therapy or not. I do not think we would put him on it at this time. He will continue his regular home medications. cc: Cornelius Pa Jr, MD
== END 2019-07-06 09:43 | disposition home or self-care (01) | DRG 312 ==
LOC: ED 12:17 → 3N 20:17
PROVIDERS: ADMIT Emergency Medicine; ATTEND Emergency Medicine